=== PATIENT | female | born 1955 | race Caucasian/White ===

== ENCOUNTER 2022-07-05 13:00 | Outpatient (RCR) | payer OTHER, SELFPAY | END 2022-07-23 10:06 | disposition home or self-care (01) | PROVIDERS: PCP Family Medicine; Visit Provider Family Medicine | DX: I63.9 Cerebral infarction, unspecified (principal); R53.81 Other malaise; R26.81 Unsteadiness on feet; M62.81 Muscle weakness (generalized); R27.8 Other lack of coordination; M25.511 Pain in right shoulder; Z51.89 Encounter for other specified aftercare | CPT/HCPCS: 97110; 97116; 97162; 97530 ==

== ENCOUNTER 2023-06-06 10:45 | Outpatient (RCR) | payer OTHER, SELFPAY | END 2023-08-29 09:23 | disposition home or self-care (01) | PROVIDERS: PCP Family Medicine; Visit Provider Family Medicine | DX: M25.551 Pain in right hip (principal); Z51.89 Encounter for other specified aftercare | CPT/HCPCS: 97110; 97140; 97161; 97530 ==

== ENCOUNTER 2024-01-06 09:45 | Outpatient (RCR) | payer OTHER, SELFPAY | END 2024-05-05 23:59 | disposition home or self-care (01) | PROVIDERS: PCP Family Medicine; Visit Provider Family Medicine | DX: Z74.09 Other reduced mobility (principal); R53.1 Weakness; Z86.73 Personal history of transient ischemic attack (TIA), and cerebral infarction without residual deficits; G57.93 Unspecified mononeuropathy of bilateral lower limbs; M79.672 Pain in left foot; M79.671 Pain in right foot; R26.81 Unsteadiness on feet; Z91.81 History of falling; R27.9 Unspecified lack of coordination; R26.89 Other abnormalities of gait and mobility; Z51.89 Encounter for other specified aftercare | CPT/HCPCS: 97110; 97162 ==

== ENCOUNTER 2024-01-09 08:51 | Outpatient (CLI) | payer OTHER, SELFPAY | END 2024-01-09 08:52 | disposition home or self-care (01) | LOC: AMB 01-21 06:31 | PROVIDERS: PCP Family Medicine; Visit Provider Emergency Medicine | DX: S29.9XXA Unspecified injury of thorax, initial encounter (principal); V47.1XXA Car passenger injured in collision with fixed or stationary object in nontraffic accident, initial encounter; Y92.410 Unspecified street and highway as the place of occurrence of the external cause | CPT/HCPCS: A0425; A0427 ==